=== PATIENT | female | born 1985 | race Two or more races ===

== ENCOUNTER 2019-10-27 12:41 | Emergency (ER) | payer BC ==
[~2019-10-27] VITALS: Ht 157.5 cm; Wt 72.7 kg
[2019-10-27 12:56] VITALS: BP 118/59
--- NOTE | 2019-10-27 13:03 | PHYS DOC ---
Past History Past Medical History: No Pertinent History Past Surgical History: No Surgical History Alcohol Use: None Adult General Chief Complaint Chief Complaint: FACE PROBLEM HPI HPI Patient is a 33-year-old female who presents with complaint of right-sided facial numbness and right arm tingling. Patient states that the facial numbness started 2 days ago and the tingling started today. She states that she is also had a headache that is very migraine like and is about a 5 out of 10 currently. She denies any photophobia. She does indicate that she has a history of migraines that have been atypical, causing visual disturbances. Patient denies any speech deficits, lateralizing weakness or visual changes. She also denies any dizziness, although she does admit to a history of vertigo.[] Review of Systems Review of Systems Constitutional: Denies fever or chills [] Respiratory: Denies cough or shortness of breath [] Cardiovascular: No additional information not addressed in HPI [] Integument: Denies rash or skin lesions [] Neurologic: Complains of headache and right-sided facial and arm numbness and tingling[] All other systems were reviewed and found to be within normal limits, except as documented in this note. Allergies Allergies Allergies Coded Allergies Type Severity Reaction Last Updated Verified Penicillins Allergy Unknown 10/27/19 Yes Physical Exam Physical Exam Constitutional: Well developed, well nourished, no acute distress, non-toxic appearance. [] Neck: Normal range of motion, no tenderness, supple, no stridor. [] Cardiovascular:Heart rate regular rhythm, no murmur [] Lungs & Thorax: Bilateral breath sounds clear to auscultation [] Abdomen: Bowel sounds normal, soft, no tenderness. [] Skin: Warm, dry, no erythema, no rash. [] Extremities: No tenderness, no cyanosis, no clubbing, ROM intact. [] Neurologic: Alert and oriented X 3, normal motor function, no focal deficits noted. [] Current Patient Data Vital Signs Vital Signs Date Time Temp Pulse Resp B/P (MAP) Pulse Ox O2 Delivery O2 Flow Rate FiO2 10/27/19 12:56 98.6 95 20 118/59 (78) 95 EKG EKG [] Radiology/Procedures Radiology/Procedures [] Course & Med Decision Making Course & Med Decision Making Pertinent Labs and Imaging studies reviewed. (See chart for details) [] Dragon Disclaimer Dragon Disclaimer This electronic medical record was generated, in whole or in part, using a voice recognition dictation system. Departure Departure: Impression: Primary Impression: Atypical migraine Disposition: 01 HOME, SELF-CARE Condition: STABLE Referrals: [facility] (PCP) Patient Instructions: Migraine Headache CHRISTIAN LILLY Jr. DO Oct 27, 2019 13:03
== END 2019-10-27 13:00 | disposition home or self-care (01) ==
LOC: ER 12:41
DX: G43.809 Other migraine, not intractable, without status migrainosus (principal); Z88.0 Allergy status to penicillin
CPT/HCPCS: 99281